=== PATIENT | female | born 1965 | race American Indian/Alaskan Native ===

== ENCOUNTER 2018-12-08 14:15 | Outpatient (CLI) | payer BC ==
--- NOTE | 2018-12-08 15:01 | Mammography Report ---
BILATERAL DIGITAL SCREENING MAMMOGRAM with CAD: 12/08/18 14:15:00 CLINICAL: Routine screening.History of right nipple discharge and status post benign biopsy of the subareolar right breast at 2 sites in 2115. Pathology revealed sclerosing adenosis versus papilloma at one site an intraductal papilloma at the second site. COMPARISON:06/05/16 FINDINGS: There are scattered areas of fibroglandular density.Right retroareolar duct ectasia is less prominent than on previous exams. 2 right biopsy clips at 9:30 o'clock 5 cm from the nipple. No mass, architectural distortion or suspicious calcifications. IMPRESSION: No mammographic evidence of malignancy. Right benign duct ectasia. BI-RADS CATEGORY: 2 -- Benign RECOMMENDATION: Routine mammographic screening in one year. COMMENT: Patient follow-up letters are generated by our [employer] application.
== END 2018-12-08 14:16 | disposition home or self-care (01) ==
LOC: SPVWC 14:15
PROVIDERS: ATTEND Hospitalist
DX: Z12.31 Encounter for screening mammogram for malignant neoplasm of breast (principal)
CPT/HCPCS: 77067

== ENCOUNTER 2019-06-19 13:33 | Outpatient (CLI) | payer BC ==
--- NOTE | 2019-06-19 14:55 | Ultrasound Report ---
RIGHT DIGITAL DIAGNOSTIC MAMMOGRAM WITH CAD -- 06/19/2019 RIGHT COMPLETE BREAST ULTRASOUND INDICATION: Pinkish spontaneous nipple discharge. F/U abnormal mammogram, nipple discharge TECHNIQUE: Digital right mammographic imaging was performed. Magnification views were obtained. Comp lete ultrasound of all four (4) quadrants was performed. This examination was interpreted with the be nefit of Computer-Aided Detection (CAD) analysis. COMPARISON: 12/08/2018 FINDINGS: Breast Density: There are scattered fibroglandular densities. MAMMOGRAPHIC FINDINGS: There is no evidence of dominant mass, suspicious calcifications or architectu ral distortion in the right breast. ULTRASOUND FINDINGS: Complete sonographic evaluation of all 4 quadrants and retroareolar region was p erformed. Ultrasound of the right breast demonstrated no mass, cyst or suspicious shadowing. Mild r etroareolar duct ectasia but no intraductal mass identified. IMPRESSION: No mammographic evidence of malignancy. Mild duct ectasia. Recommend clinical follow-up. Follow up recommendation: Routine yearly BI-RADS Category 2: Benign. A "normal" or negative report should not discourage follow up or biopsy of a clinically significant f inding. A written summary of these findings will be mailed to the patient. The patient will be entered into a mammography reporting system which will generate a reminder letter for the patient's next appointmen t at the appropriate interval. According to the [employer], yearly mammograms are recommended starting at age 40 and continuing as long as a woman is in good health. Breast MRI is recommended for women with an dina roximately 20-25% or greater lifetime risk of breast cancer, including women with a strong family his tory of breast or ovarian cancer and women who have been treated for Hodgkin's disease. Signer Name: Gildardo Healy MD Signed: 06/19/2019 2:50 PM Workstation Name: [id number]
== END 2019-06-19 13:34 | disposition home or self-care (01) ==
LOC: SPVWC 13:33
PROVIDERS: ATTEND Surgery
DX: R92.8 Other abnormal and inconclusive findings on diagnostic imaging of breast (principal)

== ENCOUNTER 2019-07-03 07:24 | Day surgery (SDC) | payer BC ==
[~2019-07-03 07:24] MED LIST: ceFAZolin/Water 2 GM/20 ML 2 GM/20 ML SYRINGE IV NR
[2019-07-03] MEDS ORDERED: LIDOCAINE (1%) 10 MG/1 ML VIAL 20 ML MDV ONE ×2 (08:14→09:35)
[2019-07-03] MEDS ORDERED: LACTATED RINGERS 1,000 ML IV SCH (09:00)
[2019-07-03] MEDS ORDERED: MIDAZOLAM 2 MG/2 ML INJ IV PRN (09:05)
--- NOTE | 2019-07-03 09:27 | Anesthesia Day of Surgery ---
Anesthesia Day of Surgery - Day of Surgery Patient Examined: Yes Patient H&P Reviewed: Yes Patient is NPO: Yes
--- NOTE | 2019-07-03 09:29 | Anesthesia Consultation ---
Anesthesia Consult and Med Hx Date of service: 07/03/19 - Airway Anesthetic Teeth Evaluation: Good ROM Head & Neck: Adequate Mental/Hyoid Distance: Adequate Mallampati Class: Class II Intubation Access Assessment: Good - Pre-Operative Health Status ASA Pre-Surgery Classification: ASA2 Proposed Anesthetic Plan: General - Pulmonary Hx Asthma: Yes (LAST ATTACK 11/2018) - Cardiovascular System Hx Hypertension: Yes (2007) - Central Nervous System Hx Psychiatric Problems: Yes - Hematic Hx Anemia: Yes (H/O; LAST LABS PCP STATED NORMAL) Hx Sickle Cell Disease: No - Other Systems Hx Alcohol Use: Yes Hx Substance Use: No Hx Cancer: No
[2019-07-03] MEDS ORDERED: ONDANSETRON 4 MG/2 ML INJ IV PRN (09:30)
[2019-07-03] MEDS ORDERED: fentaNYL 100 MCG/2 ML INJ IV PRN (09:30)
[2019-07-03] MEDS ORDERED: BUPIVACAINE/PF (0.25%) 2.5 MG/ML 30 ML VIAL INFILTRATI ONE ×2 (09:35→10:21)
[2019-07-03] MEDS ORDERED: WATER FOR IRRIG STERILE 1,000 ML BOTTLE IR ONE (10:21)
[2019-07-03] MEDS ORDERED: LIDOCAINE (1%) 10 MG/1 ML VIAL 20 ML MDV INFILTRATI ONE (10:21)
[2019-07-03] MEDS ORDERED: LACTATED RINGERS 1,000 ML ONE (11:22)
--- NOTE | 2019-07-03 11:29 | Operative Report ---
Operative Report Operative Report: Operative Report: July 03, 2019 Preoperative diagnosis: Right breast spontaneous bloody nipple discharge and breast papillomas Postoperative diagnosis: Same Procedure: Right nipple terminal duct excisional biopsy and right needle localization excisional biopsy of breast papillomas Surgeon: India Ding MD Anesthesia: General Findings: Bloody nipple discharge with duct identified using lacrimal probe with dissection taken down to prior biopsied papillomas with excision Complications: None Drains: None EBL: Minimal Disposition: PACU Indications for operative procedure: This is a 54 year-old lady high risk for breast cancer given family history and patient with history of 2 right breast masses biopsied in 2016 with findings of an intraductal papilloma and second biopsy finding of a papilloma versus adenosis. She never underwent surgical excision. She was recently seen in my office at consultation. Patient with persistent right sponanteous bloody nipple discharge and most probable for a papilloma. Recommendations were to proceed with terminal duct excisional biopsy as well as excisional biopsy of of both prior biopsied papillomas to rule out malignancy. Papillomas known benign high risk breast cancer lesions. Patient wished to proceed with the above procedure. Procedure detail: The patient was taken to radiology for placement of 2 wires to localize excision of location of both clips. The patient was taken to the operating room. She was laid supine. General anesthesia was administered. Both wires were identified at the right lateral breast from the 9 o'clock position. The right breast was prepped and draped in the normal sterile o perative fashion. Timeout was performed. Bloody nipple discharge was noted from the nipple, around the 2:00 position. Lacrimal probe was inserted into the duct of concern. A periareolar incision was made with 15 blade knife with dissection taken down to the subcutaneous tissues. First began dissection of the breast tissue from the superior flap of the nipple with dissection taken down 3-4 cm. The duct of concern was appropriately identified and dissected free with the aid of Bovie cautery, duct of concern was identified with the lacrimal probe present. Attention was then taken towards both wires, lateral breast flap was then raised using the Bovie cautery with removal of both wires laterally followed by raising of the superior flap and inferior flap and dissection taken medially until the duct of concern was encountered. The breast tissue posteriorly was then appropriately removed with the aid of Bovie cautery. The duct of concern was noted to be connecting to the area of excision of both papillomas. Hemostasis was noted. The specimen was appropriately marked and then sent to radiology with both clips and wires present and then sent to pathology. The breast cavity was anesthetized with 1% lidocaine mixed with quarter percent Marcaine. The deep breast tissues were approximated and closed using interrupted 3-0 Vicryl. The subcutaneous tissues were approximated and emilie sed using interrupted 3-0 Vicryl followed by closing of the skin with a running 4-0 Monocryl followed by skin affix. She tolerated surgery very well and was awakened from anesthesia and then transferred to PACU in good condition.
--- NOTE | 2019-07-03 11:32 | Short Stay Summary ---
Short Stay Documentation Date of service: 07/03/19 - History H&P: obtained from office - Allergies and Medications Current Medications: Allergies No Known Allergies Allergy (Verified 06/28/19 17:06) Home Medications Medication Instructions Recorded Confirmed Last Taken Type Acetaminophen [Tylenol] 500 mg PO Q4HR PRN 06/28/19 07/03/19 06/29/19 History Atenolol [Tenormin] 100 mg PO DAILY 06/28/19 07/03/19 06/29/19 History Budesonide/Formoterol Fumarate 2 puff IH BID 06/28/19 07/03/19 07/03/19 05:30 History [Symbicort 160-4.5 Mcg Inhaler] Cholecalciferol Vit D3 [Vitamin D3 1,000 unit PO QDAY 06/28/19 06/28/19 1 Week Ago History 1,000 UNIT TAB] ~06/26/19 Cyclobenzaprine HCl [Flexeril 5 MG 5 mg PO DAILY PRN 06/28/19 06/28/19 1 Week Ago History TAB] ~06/26/19 Diclofenac Sodium 75 mg PO BID 06/28/19 06/28/19 1 Week Ago History ~06/26/19 Multivit-Min/Iron/Folic/Sjl674 1 each PO DAILY 06/28/19 07/03/19 07/01/19 History [Hair, Skin and Nails Tablet] Sertraline [Zoloft] 50 mg PO QDAY 06/28/19 07/03/19 07/03/19 05:30 History Simethicone [Gas-X Ultra Strength] 180 mg PO DAILY 06/28/19 06/28/19 1 Week Ago History ~06/26/19 amLODIPine [Norvasc] 10 mg PO DAILY 06/28/19 07/03/19 07/03/19 05:30 History HYDROcodone/APAP 5-325 [[place] 1 each PO Q6HR PRN #20 tablet 07/03/19 Unknown Rx 5/325] Active Medications Fentanyl (Sublimaze) 50 mcg IV Q5MIN PRN PRN Reason: Pain , Severe (7-10) Stop: 07/03/19 16:30 Cefazolin Sodium (Ancef/Sterile Water 2 Gm/20 Ml) 2 gm in 20 mls @ 80 mls/hr IV PREOP NR; Protocol Stop: 07/03/19 23:59 Lactated Ringer's (Lactated Ringers) 1,000 mls @ 100 mls/hr IV DIRECT CHAITANYA Last Admin: 07/03/19 09:15 Dose: 100 mls/hr Documented by: Midazolam HCl (Versed) 2 mg IV PREOP PRN PRN Reason: Anxiety Stop: 07/03/19 20:00 Last Admin: 07/03/19 09:30 Dose: 2 mg Documented by: Ondansetron HCl (Zofran) 4 mg IV ONCE PRN PRN Reason: Nausea And Vomiting Stop: 07/03/19 17:00 - Brief post op/procedure progress note Date of procedure: 07/03/19 Pre-op diagnosis: Right blood nipple discharge and right breast papillomas Post-op diagnosis: same Procedure: Right nipple terminal duct excisional biopsy and right breast masses-papillomas needle localization excisional biopsy Anesthesia: GETA Findings: Both wires and clips present within specimen Surgeon: ROBIN PALMER Estimated blood loss: minimal Pathology: list (right breast mass) Specimen disposition: to lab Condition: stable - Disposition Condition at discharge: Good Disposition: DC-01 TO HOME OR SELFCARE Short Stay Discharge Plan Activity: other (no heavy lifting) Diet: regular Wound: keep clean and dry (may shower in 48 hours) Follow up with: YOLI BATISTA MD [Primary Care Provider] - 7 Days ROBIN PALMER MD [Staff Physician] - 7 Days Prescriptions: HYDROcodone/APAP 5-325 [[place] 5/325] 1 each PO Q6HR PRN #20 tablet PRN Reason: Pain
[2019-07-03] MEDS ORDERED: HYDROcodone/ACETAMINOPHEN 5-325 MG TAB PO PRN (12:18)
[2019-07-03 13:18] VITALS: BP 139/76
--- NOTE | 2019-07-03 13:34 | Post Anesthesia Evaluation ---
- Post Anesthesia Evaluation Patient Participated: Yes Airway Patent: Yes Stable Respiratory Function: Yes Nausea/Vomiting: No Temp > 96.8F: Yes Pain Manageable: Yes Adequeate Hydration: Yes Anesthesia Complications: No Block Receding Appropriately: Not Applicable Patient on Ventilator: No
== END 2019-07-03 07:25 | disposition home or self-care (01) ==
LOC: OR 07:24
PROVIDERS: ATTEND Surgery
DX: D24.1 Benign neoplasm of right breast (principal); N64.52 Nipple discharge; N60.11 Diffuse cystic mastopathy of right breast; I10 Essential (primary) hypertension; J45.909 Unspecified asthma, uncomplicated; F41.9 Anxiety disorder, unspecified; Z72.89 Other problems related to lifestyle; Z80.8 Family history of malignant neoplasm of other organs or systems; Z98.890 Other specified postprocedural states; Z79.899 Other long term (current) drug therapy; Z86.2 Personal history of diseases of the blood and blood-forming organs and certain disorders involving the immune mechanism
CPT/HCPCS: 19110; 19125; 19281; 19282; 76098; 88307; J0690; J1100; J2250; J2405; J2704; J3010; J7120

== ENCOUNTER 2020-04-09 08:28 | Outpatient (CLI) | payer BC ==
--- NOTE | 2020-04-09 09:39 | Ultrasound Report ---
EXAMINATION: Right Limited Breast Ultrasound, 04/09/2020 INDICATION: Right brownish nipple discharge intermittently for 2 months. COMPARISON: Right breast ultrasound 06/19/19. FINDINGS: Targeted ultrasound evaluation was performed of the area of interest. There is mild scarri ng along the lateral margin of the right areola. There is a single mildly dilated duct in the right s ubareolar region at the 8:00 position which is similar to the prior study. I do not identify an intra ductal filling defect. No other abnormality is seen. IMPRESSION: Mild benign-appearing ductal ectasia in the subareolar region at the 8:00 position is sim ilar to 06/19/19. No new abnormality is seen. Follow up recommendation: Clinical exam BI-RADS Category 2: Benign. Signer Name: Redd Birmingham MD Signed: 04/09/2020 9:34 AM Workstation Name: [id number]
== END 2020-04-09 08:29 | disposition home or self-care (01) ==
LOC: SPVWC 08:28
PROVIDERS: ATTEND Surgery
DX: N60.41 Mammary duct ectasia of right breast (principal); N64.52 Nipple discharge

== ENCOUNTER 2020-06-05 13:50 | Outpatient (CLI) | payer BC ==
--- NOTE | 2020-06-06 16:26 | Magnetic Resonance Report ---
Bilateral breast MR without and with contrast. History: Intermittent right brownish nipple discharge, history of right breast excisional biopsy. Comparison: 04/09/2020, 03/21/2020. Technique: Multiplanar multisequence MR images of the breast were obtained before and after the intra venous administration of intravenous contrast. Post processing analysis and review was performed on a separate computer workstation. Findings: Breast composition is scattered fibroglandular. There is mild background parenchymal enhancement in b oth breasts. RIGHT BREAST: There are postsurgical changes in the anterior right lateral breast. Located slightly i nferior and posterior to the area of postsurgical change is a 6 x 4 x 3 mm enhancing lesion at about the 8:00 position, 3 cm from the nipple. There is intrinsically bright T1 signal within the right sub areolar duct and nipple which may represent blood products/proteinaceous debris. LEFT BREAST: A few scattered enhancing low level foci are noted throughout the left breast without ev idence of enhancing mass, dominant focus, or other abnormal enhancement. Mildly enlarged right axillary lymph nodes appear asymmetric. No abnormal left axillary or internal m ammary lymph nodes. Impression: There is a 6 mm enhancing lesion in the right breast at the 8:00 position, 3 cm from the nipple. This is just inferior and posterior to the area of postsurgical change. A targeted ultrasound is recommen ded for further evaluation with possible subsequent ultrasound-guided biopsy if a sonographic correla te is identified. If no sonographic correlate is identified and bloody nipple discharge persists, an MRI guided biopsy would be recommended. Mildly enlarged right axillary lymph nodes appear asymmetric. A right axillary ultrasound is recommen ded. BIRADS 0: Incomplete--Needs Additional Imaging Evaluation. A normal MRI does not exclude the presence of some forms of breast malignancy as literature reports s uggest that some forms of ductal carcinoma in situ or lobular carcinoma, particularly, may not be det ected on MRI. The sensitivity and specificity of MRI for cancers under 5 mm may be reduced. MRI does not replace the recommendation for annual conventional mammographic evaluation and should be used as an adjunct to mammography and physical examination as necessary. Signer Name: Jhony Carballo MD Signed: 06/05/2020 3:56 PM Workstation Name: [id number]
== END 2020-06-05 13:51 | disposition home or self-care (01) ==
LOC: SPVIMAG 13:50
PROVIDERS: ATTEND Surgery
DX: N64.89 Other specified disorders of breast (principal); N64.52 Nipple discharge; N60.11 Diffuse cystic mastopathy of right breast; N60.12 Diffuse cystic mastopathy of left breast
CPT/HCPCS: A9577; C8908; 77049

== ENCOUNTER 2020-06-25 08:38 | Outpatient (CLI) | payer BC ==
--- NOTE | 2020-06-25 09:57 | Ultrasound Report ---
ULTRASOUND BREAST RIGHT LIMITED, 06/25/2020 CLINICAL INFORMATION / INDICATION: Abnormal breast MRI. TECHNIQUE: Targeted ultrasound evaluation was performed of the area of interest. COMPARISON: Bilateral breast MRI 06/05/20. FINDINGS: There is localized scarring at the 8:00 position 3 cm from the nipple. There is a 4.2 mm circumscribe d ovoid hypoechoic solid nodule at the 9:00 position 2 cm from the nipple. No posterior features are seen and there is no evidence of internal vascularity on Doppler exam. The nodule is probably benign sonographically and probably represents the MRI lesion. There is a single lymph node in the right axilla which measures 2.7 x 0.9 cm. There is a normal large fatty hilum. There is mild cortical thickening in the polar regions measuring up to 4.7 mm. IMPRESSION: 1. 4 mm benign-appearing solid nodule at the 9:00 position probably corresponds to the MRI finding. 2. Right axillary lymph node demonstrates mild cortical thickening in the polar regions. The findings are nonspecific but more likely reactive in a patient without known malignancy. Follow up recommendation: Short term follow up in 6 months. Unless biopsy of one or both findings is clinically warranted, sonographic follow-up in 6 months may be helpful in documenting stability. BI-RADS Category 2: Benign. A normal or "negative" report should not preclude biopsy or follow-up of a clinically suspicious find ing. Signer Name: Redd Birmingham MD Signed: 06/25/2020 9:52 AM Workstation Name: [email or web address]
== END 2020-06-25 08:39 | disposition home or self-care (01) ==
LOC: SPVWC 08:38
PROVIDERS: ATTEND Surgery
DX: N63.15 Unspecified lump in the right breast, overlapping quadrants (principal); N64.89 Other specified disorders of breast

== ENCOUNTER 2021-02-04 09:14 | Outpatient (CLI) | payer BC ==
--- NOTE | 2021-02-04 10:28 | Ultrasound Report ---
RIGHT BREAST ULTRASOUND INDICATION: Right bloody nipple discharge. COMPARISON: 06/25/2020, 06/05/2020, 04/09/2020. FINDINGS: A targeted ultrasound along the right lower outer breast near the site of prior surgical ex cision was performed. This is in the region where an abnormality was noted on prior MRI. Area of scar ring is noted around the 8:00 position and there is an adjacent irregular duct at the 8:00 periareola r location. It is difficult to determine if this contains solid components or internal debris. Given the presence of bloody nipple discharge, an ultrasound-guided biopsy is recommended. Targeted ultraso und of the right axilla shows no abnormal lymph nodes. Of note, one lymph node appeared to be borderl ine enlarged, but upon re-evaluation, this was measured at an angle and subsequent images confirm no abnormal lymph nodes. IMPRESSION: Questionable intraductal mass versus debris filled duct at the 8:00 periareolar location. An ultrasou nd-guided biopsy is recommended. These findings and recommendations were discussed with the patient at the conclusion of the exam by Linda Carballo. BI-RADS Category 4: Suspicious for Malignancy. Signer Name: Jhony Carballo MD Signed: 02/04/2021 10:24 AM Workstation Name: [id number]
== END 2021-02-04 09:15 | disposition home or self-care (01) ==
LOC: SPVWC 09:14
PROVIDERS: ATTEND Surgery
DX: N64.52 Nipple discharge (principal)

== ENCOUNTER 2021-03-11 08:09 | Outpatient (CLI) | payer BC ==
--- NOTE | 2021-03-11 09:32 | Mammography Report ---
RIGHT DIAGNOSTIC MAMMOGRAM INDICATION: Status post right breast 8:00 ultrasound-guided biopsy. COMPARISON: 02/04/2021. FINDINGS: Right breast CC and LM projection mammograms were obtained. These document expected locatio n of a U-shaped biopsy marker in the right breast at the 8:00 anterior position. This corresponds wit h the site of recent ultrasound-guided core biopsy. IMPRESSION: Mammographic images documenting expected location of right breast 8:00 biopsy marker at site of recen t ultrasound guided core biopsy. BI-RADS Category 4: Suspicious for Malignancy. Signer Name: Jhony Carballo MD Signed: 03/11/2021 9:28 AM Workstation Name: [id number]
--- NOTE | 2021-03-11 09:54 | Ultrasound Report ---
ULTRASOUND-GUIDED CORE NEEDLE BIOPSY Right BREAST WITH CLIP PLACEMENT INDICATION: Right breast lesion at the 8:00 periareolar location. FINDINGS: Informed consent was obtained. The lesion within the right breast at the 8:00 periareolar location wa s identified with ultrasound. The overlying skin was cleansed with chloro prep and local anesthesia w as obtained with a 1% lidocaine solution. Under ultrasound guidance a 14-gauge spring loaded core bio psy needle was advanced to the lesion. A total of 4 core samples were obtained. A U-shaped biopsy mar ker was placed to nikunj the site of the biopsy. Specimen samples were placed in formalin [facility]. Patient tolerated the procedure well and no immediate complications were identified. A post procedure mammogram demonstrates accurate placement of the biopsy marker. IMPRESSION: Technically successful ultrasound guided core biopsy of right breast lesion at the 8:00 periareolar l ocation with placement of a U-shaped biopsy marker. An addendum will be added to this report once pathology results are available. Signer Name: Jhony Carballo MD Signed: 03/11/2021 9:49 AM Workstation Name: [id number]
== END 2021-03-11 08:10 | disposition home or self-care (01) ==
LOC: SPVWC 08:09
PROVIDERS: ATTEND Surgery
DX: N63.13 Unspecified lump in the right breast, lower outer quadrant (principal); N64.89 Other specified disorders of breast; R92.8 Other abnormal and inconclusive findings on diagnostic imaging of breast; I10 Essential (primary) hypertension; J45.909 Unspecified asthma, uncomplicated; F41.9 Anxiety disorder, unspecified; Z79.899 Other long term (current) drug therapy; Z72.89 Other problems related to lifestyle; Z98.890 Other specified postprocedural states; Z80.8 Family history of malignant neoplasm of other organs or systems; Z86.2 Personal history of diseases of the blood and blood-forming organs and certain disorders involving the immune mechanism
CPT/HCPCS: 88305

== ENCOUNTER 2021-03-26 08:59 | Outpatient (CLI) | payer BC ==
--- NOTE | 2021-03-26 12:07 | Mammography Report ---
DIGITAL SCREENING MAMMOGRAM WITH CAD, 03/26/2021 CLINICAL INFORMATION / INDICATION: Routine screening mammography. TECHNIQUE: Digital bilateral 2D mammography was obtained in the craniocaudal and mediolateral obliqu e projections. This examination was interpreted with the benefit of Computer-Aided Detection analysis . COMPARISON: Prior mammograms 03/11/2021, 03/21/2020 and 12/08/2018 FINDINGS: Breast Density: There are scattered areas of fibroglandular density. No dominant mass, suspicious calcifications, or architectural distortion in either breast. There is stable benign postsurgical change seen in the right breast and a stable biopsy clip in the r ight breast at site of recent benign ultrasound-guided biopsy. IMPRESSION: 1. No suspicious mammographic abnormality identified in either breast. 2. Refer to recent right breast ultrasound-guided biopsy report for pathology findings and recommenda tion for a 6 month follow-up right breast ultrasound. Follow up recommendation: Routine yearly. Additionally, six-month follow-up right breast ultrasound a s recommended in recent ultrasound-guided biopsy report. BI-RADS Category 2: Benign. A "normal" or negative report should not discourage follow up or biopsy of a clinically significant f inding. A written summary of these findings will be mailed to the patient. The patient will be entered into a mammography reporting system which will generate a reminder letter for the patient's next appointmen t at the appropriate interval. The [employer] recommends yearly mammograms starting at age 40 and continuing as l lynette as a woman is in good health. Breast MRI is recommended for women with an approximate 20-25% or greater lifetime risk of breast cancer, including women with a strong family history of breast or ova nithin cancer or who have been treated for Hodgkin's disease. Signer Name: Chanelle Salmeron MD Signed: 03/26/2021 12:02 PM Workstation Name: [email or web address]
== END 2021-03-26 09:00 | disposition home or self-care (01) ==
LOC: SPVWC 08:59
PROVIDERS: ATTEND Surgery
DX: Z12.31 Encounter for screening mammogram for malignant neoplasm of breast (principal)
CPT/HCPCS: 77067

== ENCOUNTER 2021-05-21 08:02 | Outpatient (CLI) | payer BC ==
--- NOTE | 2021-05-23 10:04 | Magnetic Resonance Report ---
Bilateral breast MRI with and without contrast. History: Family history of breast cancer, prior history of right body nipple discharge, now resolved , benign right breast biopsy in February Procedure: Axial T1 and T2-weighted fat-sat images were obtained precontrast. 17 cc Clariscan was in jected intravenously and serial axial T1-weighted images with fat saturation were obtained postcontra st. 3-D MIP projections, Kinetic analysis and subtraction imaging was utilized to evaluate. A [place] 8 channel breast coil was utilized for image acquisition. Comparison: Bilateral mammogram 07/05/2021, MR breast 06/05/2020, right breast ultrasound 06/25/2020, right breast ultrasound 02/04/2021, right breast ultrasound-guided biopsy images 03/11/2021, right eder gnostic post biopsy mammogram 03/11/2021 Findings: Background level of enhancement is mild. No suspicious axillary or clavicular nodes are identified. No abnormal bone marrow signal is seen. No significant chest wall enhancement is noted. Right breast: Mild benign-appearing stippled enhancement is noted. Surgical changes are again seen. N o suspicious lesions are noted. Specifically, I do not see a suspicious lesions or significant change in the retroareolar area. Left breast: Mild benign-appearing stippled enhancement is seen. No significant changes are noted. Impression: No suspicious lesions are seen, including in the right retroareolar area BIRADS: 2: Benign Signer Name: Beck Galvez MD Signed: 05/23/2021 9:59 AM Workstation Name: [id number]
== END 2021-05-21 08:03 | disposition home or self-care (01) ==
LOC: SPVIMAG 08:02
PROVIDERS: ATTEND Surgery
DX: N64.52 Nipple discharge (principal); Z80.3 Family history of malignant neoplasm of breast
CPT/HCPCS: A9575; C8908; 77049